=== PATIENT | female | born 1985 | race Caucasian/White ===

== ENCOUNTER → 2016-11-25 | Outpatient (CLI) | payer BC, OTHER ==
--- NOTE | 2016-11-26 10:48 | SLEEPCENT ---
DATE OF PROCEDURE: 11/25/2016 ORDERED BY: Jc Ariza MD Nocturnal polysomnography was performed for evaluation of sleep physiology in this patient with a history of excessive somnolence and nonrestorative sleep. 7 hours and 14 minutes of data were reviewed. There were 289 minutes of sleep identified. Sleep latency was prolonged at 87 minutes. Rapid eye movement (REM) was normal at 73 minutes. Sleep architecture showed some fragmentation, fair progression. 2 REM periods were appreciated. Overall sleep efficiency was 67% due to a period of wake between 2 and 3 a.m. The patient's EKG showed a sinus rhythm with an average heart rate of 56 beats per minute. EEG showed some alpha intrusion into non REM stages. No focal events were identified. There were no respiratory events identified during testing. Snoring was noted. Respiratory related arousals were 0.2 times per hour. Significant limb activity was noted during progression in sleep. There was one train of 30 events identified and limb movement arousal index was 11. Oxygen saturations remained normal and remaining measures of sleep physiology were normal. IMPRESSION: Periodic limb movement disorder (G47.61). Limb movement arousal index 11. RECOMMENDATION: Interventions to reduce the frequency arousal from limb activity should help improve the quality of this patient's sleep.
== END ==
LOC: M SLEEP 19:47
PROVIDERS: ATTEND Internal Medicine Pulmonary Disease
DX: G47.61 Periodic limb movement disorder (principal)

== ENCOUNTER → 2018-03-04 | Outpatient (CLI) | payer OTHER, BC ==
[~2018-03-04] MED LIST: ISOVUE-370 76% 100ML VIAL (Q9967) As Ordered ONE
--- NOTE | 2018-03-04 19:02 | REP ---
Clinical: Rule out aspiration pneumonia . Comparison: None . Technique: PA and lateral. Findings: The mediastinum and cardiac silhouette are normal. Subtle basilar atelectasis (left greater than right) cannot be excluded. No effusion, or pneumothorax. The skeletal structures are intact and normal. Impression: Subtle basilar atelectasis suggested. Electronically Signed by Ventura Lopez MD 03/04/2018 06:53 P
== END ==
LOC: M RAD 10:28
DX: S02.5XXA Fracture of tooth (traumatic), initial encounter for closed fracture (principal); X58.XXXA Exposure to other specified factors, initial encounter; Y92.89 Other specified places as the place of occurrence of the external cause